=== PATIENT | male | born 1995 | race Two or more races ===

== ENCOUNTER 2023-02-13 18:52 | Emergency (ER) | payer MEDICAID, OTHER ==
[~2023-02-13] VITALS: Ht 172.7 cm; Wt 50.3 kg
[2023-02-13 19:27] LABS: Basophils # (auto) 0.2 10 ^3/uL (0-0.2); Basophils % (auto) 1.1 % (0.0-2.0); Eosinophils # (auto) 0 10 ^3/uL (0-0.8); Hematocrit 52.5 % (41.0-53.0); Hemoglobin 17.5 g/dL (13.5-17.5); Lymphocytes # (auto) 0.4 10 ^3/uL (0.4-5.4); Mean Corpuscular Hemoglobin 31.7 pg (28.0-32.0); Mean Corpuscular Hgb Conc. 33.3 g/dL (32.0-36.0); Mean Corpuscular Volume 95.1 fL (80.0-100.0); Monocytes % (auto) 4.9 % (0.0-12.0); Neutrophils # (auto) 18.3 10 ^3/uL (1.6-8.6); Red Blood Cells 5.52 10^6/uL (4.5-5.90); Red Cell Distribution Width 14.5 % (11.8-14.3); White Blood Cell 19.9 10^3/uL (4.4-10.8)
[2023-02-13 20:03] LABS: BUN/Creatinine Ratio 13.1 (10.0-20.0); Calcium 9.4 mg/dL (8.5-10.1); Potassium 4.9 mmol/L (3.5-5.1)
[2023-02-13 20:06] LABS: Total Protein 8.9 g/dL (6.4-8.2)
[2023-02-13] MEDS ORDERED: ONDANSETRON HCL 4 MG/2 ML VIAL IV ONE ×2 (21:30→22:45)
[2023-02-13] MEDS ORDERED: SODIUM CHLORIDE 0.9% 1,000 ML IV ONE (21:30)
[2023-02-13] MEDS ORDERED: LORazepam 2MG/ML-1ML VIAL IM ONE (21:30)
[2023-02-13] MEDS ORDERED: LORazepam 2MG/ML-1ML VIAL IV ONE (21:30)
[2023-02-13 22:02] LABS: Urine Bacteria NONE SEEN /hpf (None Seen); Urine Blood Negative /uL (Negative); Urine Clarity Clear (Clear); Urine Color Yellow (Yellow); Urine Hyaline Cast MOD /lpf (0 - 2); Urine Mucus FEW (None Seen); Urine Protein, UAD 1+ (Negative); Urine Urobilinogen Normal (Negative); Urine WBC 2 /hpf (0 - 3); Urine pH 5.5 (5.0-8.0)
[2023-02-13 22:08] LABS: Amphetamine Screen, Urine POSITIVE (NEGATIVE); Barbiturate Scree,Urine NEGATIVE (NEGATIVE); Benzodiazephine Screen, Urine NEGATIVE (NEGATIVE); Cannabinoid Screen, Urine POSITIVE (NEGATIVE); Cocaine Screen, Urine NEGATIVE (NEGATIVE); Phencyclidine Screen, Urine NEGATIVE (NEGATIVE)
[2023-02-13 22:17] LABS: Opiate Scree,Urine NEGATIVE (NEGATIVE)
[2023-02-13] MEDS ORDERED: IOHEXOL 350 MG/ML 100ML IJ ONE (23:01)
[2023-02-13] MEDS ORDERED: LIDOCAINE VISCOUS 2% 15ML UD MT ONE (23:30)
[2023-02-13] MEDS ORDERED: MAALOX PLUS or MAALOX 30 ML PO ONE (23:30)
[2023-02-13 23:45] VITALS: BP 137/87; PULSE 95; RESP 18; TEMP 97.8; O2SAT 100
[2023-02-13] MEDS ORDERED: ZOFR4T PO (23:52)
== END 2023-02-13 23:58 | disposition home or self-care (01) ==
LOC: ER 18:52
DX: F10.939 Alcohol use, unspecified with withdrawal, unspecified (principal); R11.10 Vomiting, unspecified
CPT/HCPCS: 36415; 74177; 80053; 80307; 81001; 83605; 83690; 85025; 96361; 96374; 96375; 96376; 99285; J2060; J2405; J7030; Q9967

== ENCOUNTER 2023-02-16 05:13 | Emergency (ER) | payer MEDICAID ==
[~2023-02-16] VITALS: Ht 172.7 cm; Wt 49.2 kg
[~2023-02-16 05:13] MED LIST: ZOFR4T PO
[2023-02-16 06:45] LABS: Basophils # (auto) 0 10 ^3/uL (0-0.2); Eosinophils # (auto) 0 10 ^3/uL (0-0.8); Lymphocytes # (auto) 1.5 10 ^3/uL (0.4-5.4); Monocytes # (auto) 1.1 10 ^3/uL (0-1.3); Monocytes % (auto) 11.4 % (0.0-12.0)
[2023-02-16 06:50] LABS: Basophils % (auto) 0.3 % (0.0-2.0); Eosinophils % (auto) 0.1 % (0.0-7.0); Hematocrit 53.1 % (41.0-53.0); Hemoglobin 18.2 g/dL (13.5-17.5); Lymphocytes % (auto) 15.5 % (10.0-50.0); Mean Corpuscular Hemoglobin 31.9 pg (28.0-32.0); Mean Corpuscular Hgb Conc. 34.2 g/dL (32.0-36.0); Mean Corpuscular Volume 93.1 fL (80.0-100.0); Neutrophils # (auto) 7.2 10 ^3/uL (1.6-8.6); Neutrophils % (auto) 72.7 % (37.0-80.0); Nucleated Red Blood Cells % 0.2 %; Red Cell Distribution Width 14.1 % (11.8-14.3); White Blood Cell 9.9 10^3/uL (4.4-10.8)
[2023-02-16 06:56] LABS: Albumin 4.5 g/dL (3.4-5.0); Calcium 10.2 mg/dL (8.5-10.1); Potassium 3.9 mmol/L (3.5-5.1)
[2023-02-16 07:00] LABS: BUN/Creatinine Ratio 20.2 (10.0-20.0); Bilirubin, Total 0.6 mg/dL (0.2-1.0)
[2023-02-16] MEDS ORDERED: PROCHLORPERAZINE EDISYLATE 5 MG/ML 2ML VIAL IV ONE (08:00)
[2023-02-16 08:33] VITALS: TEMP 97.8
[2023-02-16] MEDS ORDERED: SODIUM CHLORIDE 0.9% 2,000 ML IV ONE (10:00)
[2023-02-16] MEDS ORDERED: LIDOCAINE VISCOUS 2% 15ML UD PO ONE (10:00)
[2023-02-16] MEDS ORDERED: DONNATAL 5ml ORAL Elix (BELLADONNA ALK-PHENOBARB) PO ONE (10:00)
[2023-02-16] MEDS ORDERED: MAALOX PLUS or MAALOX 30 ML PO ONE (10:00)
[2023-02-16] MEDS ORDERED: ONDANSETRON HCL 4 MG/2 ML VIAL IV ONE (10:00)
[2023-02-16 10:09] VITALS: PULSE 101; RESP 14; O2SAT 96
[2023-02-16 11:59] VITALS: BP 102/67; PULSE 66; RESP 13; O2SAT 95
[2023-02-16 12:12] LABS: Urine Bacteria NONE SEEN /hpf (None Seen); Urine Blood Negative /uL (Negative); Urine Clarity HAZY (Clear); Urine Color Yellow (Yellow); Urine Hyaline Cast MOD /lpf (0 - 2); Urine Mucus MANY (None Seen); Urine Protein, UAD 2+ (Negative); Urine Specific Gravity 1.036 (1.001-1.035); Urine WBC 16 /hpf (0 - 3); Urine pH 6.5 (5.0-8.0)
[2023-02-16 12:43] LABS: Alcohol, Urine < 3.0 mg/dL (0-10); Barbiturate Scree,Urine NEGATIVE (NEGATIVE); Benzodiazephine Screen, Urine NEGATIVE (NEGATIVE); Cannabinoid Screen, Urine POSITIVE (NEGATIVE); Cocaine Screen, Urine NEGATIVE (NEGATIVE)
[2023-02-16 12:50] LABS: Amphetamine Screen, Urine NEGATIVE (NEGATIVE); Opiate Scree,Urine NEGATIVE (NEGATIVE); Phencyclidine Screen, Urine NEGATIVE (NEGATIVE)
[2023-02-16] MEDS ORDERED: PROC10TA6 PO (16:10)
[2023-02-16] MEDS ORDERED: OMEP20TA PO (16:10)
[2023-02-16] MEDS ORDERED: ALUMCHW6 PO (16:10)
== END 2023-02-16 16:15 | disposition home or self-care (01) ==
LOC: ER 05:13
DX: K29.20 Alcoholic gastritis without bleeding (principal); R11.2 Nausea with vomiting, unspecified; F10.10 Alcohol abuse, uncomplicated; K21.9 Gastro-esophageal reflux disease without esophagitis; F17.210 Nicotine dependence, cigarettes, uncomplicated; Z79.899 Other long term (current) drug therapy
CPT/HCPCS: 36415; 71046; 80053; 80307; 81001; 83690; 83735; 85025; 96361; 96374; 96375; 99284; J0780; J2405; J7030